=== PATIENT | female | born 1945 | race Two or more races ===

== ENCOUNTER 2017-01-29 14:06 | Emergency (ER) | payer MEDICARE ==
[~2017-01-29] VITALS: Ht 160 cm; Wt 81.6 kg
[2017-01-29 15:30] LABS: ALANINE AMINOTRANSFERASE 46 U/L (3-33); ALBUMIN/GLOBULIN RATIO 1.8 (1.0-2.7); ANION GAP 15 (5-15); ASPARTATE AMINO TRANSFERASE 34 U/L (5-40); CALCIUM 10.6 mg/dL (8.6-10.2); CARBON DIOXIDE 26 mEQ/L (20-30); CHLORIDE 96 mEQ/L (98-107); CREATININE 3.3 mg/dL (0.5-0.9); HEMOLYSIS 4; POTASSIUM 4.2 mEQ/L (3.4-4.9); SODIUM 137 mEQ/L (135-145); TOTAL PROTEIN 5.7 g/dL (6.6-8.7)
[2017-01-29 15:32] VITALS: BP 93/76
[2017-01-29 15:32] LABS: INR 1.1 (0.9-1.1)
[2017-01-29 15:35] LABS: BASOPHILS % (AUTO) 0.5 % (0.0-2.0); LYMPHOCYTES % (AUTO) 15.1 % (20.0-45.0); MEAN CORPUSCULAR HEMOGLOBIN 34.7 PG (27.0-31.0); MEAN CORPUSCULAR HGB CONC 32.3 G/DL (32.0-36.0); MEAN CORPUSCULAR VOLUME 107 FL (80-99); MEAN PLATELET VOLUME 7.4 FL (6.5-10.1); MONOCYTES % (AUTO) 7.3 % (1.0-10.0); PLATELET COUNT 134 K/UL (150-450); RED CELL DISTRIBUTION WIDTH 16.2 % (11.6-14.8); WHITE BLOOD COUNT 9.6 K/UL (4.8-10.8)
[2017-01-29 15:41] LABS: CKMB 2.2 ng/mL (< 3.8)
[2017-01-29 15:42] LABS: REFLEX LACTIC ACID YES OR NO YES
[2017-01-29 15:43] LABS: TROPONIN I 0.37 ng/mL (<=0.30)
[2017-01-29] MEDS ORDERED: Aspirin Baby 81mg ORAL ONE (15:45)
[2017-01-29] MEDS ORDERED: Hydrocortisone 100mg Inj IV ONE (15:45)
[2017-01-29] MEDS ORDERED: cefTRIAXone 1 GM in NS 55 ML IVPB ONE (15:45)
--- NOTE | 2017-01-29 15:49 | Diagnostic Imaging Report ---
Indication: SOB Technique: One view of the chest Comparison: none Findings: Lungs and pleural spaces are clear. Heart is mildly enlarged. Impression: Borderline cardiomegaly. No acute process
[2017-01-29 16:00] LABS: BILIRUBIN,DIRECT 0.4 mg/dL (0.1-0.3)
[2017-01-29] MEDS ORDERED: Levophed 4mg/4mL Inj IV ONE (16:01)
[2017-01-29 16:03] LABS: APPEARANCE,URINE TURBID; KETONES,URINE NEGATIVE (NEGATIVE); LEUKOCYTE ESTERASE ,URINE 3+ (NEGATIVE); NITRITE,URINE NEGATIVE (NEGATIVE); PH,URINE 6.5 (4.5-8.0); PROTEIN,URINE 4+ (NEGATIVE); UROBILINOGEN,URINE NORMAL MG/DL (0.0-1.0)
[2017-01-29 16:15] LABS: WBC,URINE TNTC /HPF (0 - 2)
[2017-01-29 16:16] LABS: BACTERIA,URINE MANY /HPF; SQUAMOUS EPITHELIAL CELL,UR OCCASIONAL /LPF (NONE/OCC)
[2017-01-29] MEDS ORDERED: Heparin 5000 units/ml inj IV ONE (17:00)
[2017-01-29] MEDS ORDERED: Heparin 25,000u/D5W 500ml 500 ML IV SCH (17:00)
[2017-01-29] MEDS ORDERED: Lidocaine 1% MPF 10mg/ml 5ml ONE (17:16)
--- NOTE | 2017-01-29 17:58 | Emergency Room Report ---
History of Present Illness General Chief Complaint: Generalized Weakness Source: Patient, EMS Present Illness HPI Patient is 72-year-old female brought in by EMS after increased generalized weakness. Patient can onset of symptoms. Patient had been seen in one day prior for MRI. The patient had recent fall approximately 2 weeks ago which she had a left lower extremity bruising from. Patient was brought in by EMS after increased generalized weakness. Patient is on multiple medications for her heart which include amiodarone as well as metoprolol and furosemide. She had been anticoagulated with Plavix as well as Elliquis. The patient noted be diabetic. The patient noted be hypotensive by EMS was given IV fluids. The patient is somewhat confused. History is limited by patient's mental status and poor historian Allergies: Coded Allergies: CIPROFLOXACIN (Verified Allergy, Unknown, 01/29/17) DIAZEPAM (Verified Allergy, Unknown, 01/29/17) HYPERACTIVITY Patient History Past Medical History: see triage record, DM Last Menstrual Period: N/A Reviewed Nursing Documentation: PMH: Agreed, PSxH: Agreed Nursing Documentation-PMH Hx Hypertension: Yes Hx Diabetes: Yes - BORDERLINE Review of Systems All Other Systems: limited - by mental status Physical Exam Vital Signs Date Time Temp Pulse Resp B/P Pulse Ox O2 Delivery O2 Flow Rate FiO2 01/29/17 14:09 100.0 90 16 70/23 99 Room Air General Appearance: alert, moderate distress, Chronically Ill Eyes: bilateral eye PERRL Neck: limited range of motion Cardiovascular #1: normal peripheral pulses, regular rate, rhythm Gastrointestinal: normal bowel sounds, non tender, soft Musculoskeletal: swelling - left leg bruising and swelling Neurologic: normal inspection, alert, oriented x3, responsive, snuff box finisher III-XII nml as tested Skin: normal inspection Procedures Critical Care Time Critical Care Time Patient had a critical medical condition which untreated could potentially result in life or limb threatening injury. Total critical care time excluding procedures approximately 45 minutes. Central Line Central Line : Consent: Emergent Central Line Lumen: triple Maximal Sterile Barrier Tech: yes cap, yes mask, yes sterile gown, yes sterile gloves, yes large sterile sheet, yes hand hygiene, yes chlorhexidine prep Central Line Postion: femoral (R) Anesthesia: local cc's of anesthesia: 4 Complications: none Central Line Post Position: sutured, good blood return Attempts: One Patient Tolerated: Well Complications: None Medical Decision Making Diagnostic Impression: Primary Impression: Severe sepsis Additional Impressions: Non-STEMI (non-ST elevated myocardial infarction) Renal insufficiency Pyelonephritis ER Course Patient presented for generalized weakness. Differential diagnosis included was not limited to anemia, urinary tract infection, electrolyte abnormality, hypothyroidism, myocardial infarction, myasthenia gravis, dehydration, among others. Because of complexity of patient's case laboratory testing and imaging studies were ordered. I EKG interpreted by me showed a sinus rhythm with the multiple premature atrial contractions rate of 93 there were inferior and anterior ST depressions concerning for ischemia. There appear to be some isolated changes in aVR less than 1 mm. The patient started on heparin drip. The patient was given aspirin. She was started on IV fluids and IV antibiotics. I laboratory testing was notable for elevated lactic acid level as well as thrombocytopenia. Patient's case was discussed with cardiology for [facility] transfer center and patient was accepted as a transfer for higher level care for cardiac management. The patient was a fully started on Levophed drip do to hypotension. 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 The patient is being transferred at [facility] for further cardiac evaluation and continuity care. The patient family requested transfer Labs Test 01/29/17 15:00 01/29/17 15:30 White Blood Count 9.6 K/UL (4.8-10.8) Red Blood Count 2.80 M/UL (4.20-5.40) Hemoglobin 9.7 G/DL (12.0-16.0) Hematocrit 30.1 % (37.0-47.0) Mean Corpuscular Volume 107 FL (80-99) Mean Corpuscular Hemoglobin 34.7 PG (27.0-31.0) Mean Corpuscular Hemoglobin Concent 32.3 G/DL (32.0-36.0) Red Cell Distribution Width 16.2 % (11.6-14.8) Platelet Count 134 K/UL (150-450) Mean Platelet Volume 7.4 FL (6.5-10.1) Neutrophils (%) (Auto) 77.0 % (45.0-75.0) Lymphocytes (%) (Auto) 15.1 % (20.0-45.0) Monocytes (%) (Auto) 7.3 % (1.0-10.0) Eosinophils (%) (Auto) 0.0 % (0.0-3.0) Basophils (%) (Auto) 0.5 % (0.0-2.0) Prothrombin Time 11.0 SEC (9.30-11.50) Prothromb Time International Ratio 1.1 (0.9-1.1) Activated Partial Thromboplast Time 26 SEC (23-33) Sodium Level 137 mEQ/L (135-145) Potassium Level 4.2 mEQ/L (3.4-4.9) Chloride Level 96 mEQ/L (98-107) Carbon Dioxide Level 26 mEQ/L (20-30) Anion Gap 15 (5-15) Blood Urea Nitrogen 40 mg/dL (7-23) Creatinine 3.3 mg/dL (0.5-0.9) Estimat Glomerular Filtration Rate mL/min (>60) Glucose Level 75 mg/dL (74-106) Lactic Acid Level 6.00 mmol/L (0.66-2.22) Calcium Level 10.6 mg/dL (8.6-10.2) Total Bilirubin 2.3 mg/dL (0.0-1.2) Direct Bilirubin 0.4 mg/dL (0.1-0.3) Aspartate Amino Transf (AST/SGOT) 34 U/L (5-40) Alanine Aminotransferase (ALT/SGPT) 46 U/L (3-33) Alkaline Phosphatase 88 U/L (35-104) Total Creatine Kinase 93 U/L (26-140) Creatine Kinase MB 2.2 ng/mL (< 3.8) Creatine Kinase MB Relative Index 2.3 Troponin I 0.37 ng/mL (<=0.30) Pro-B-Type Natriuretic Peptide 7527 pg/mL (0-125) Total Protein 5.7 g/dL (6.6-8.7) Albumin 3.7 g/dL (3.5-5.2) Globulin 2.0 g/dL Albumin/Globulin Ratio 1.8 (1.0-2.7) Urine Color Yellow Urine Appearance Turbid Urine pH 6.5 (4.5-8.0) Urine Specific [place] 1.010 (1.005-1.035) Urine Protein 4+ (NEGATIVE) Urine Glucose (UA) Negative (NEGATIVE) Urine Ketones Negative (NEGATIVE) Urine Occult Blood 5+ (NEGATIVE) Urine Nitrite Negative (NEGATIVE) Urine Bilirubin Negative (NEGATIVE) Urine Urobilinogen Normal MG/DL (0.0-1.0) Urine Leukocyte Esterase 3+ (NEGATIVE) Urine RBC 2-4 /HPF (0 - 2) Urine WBC Tntc /HPF (0 - 2) Urine Squamous Epithelial Cells Occasional /LPF Urine Bacteria Many /HPF (NONE) EKG Diagnostic Results Rate: normal Rhythm: other - diffuse st depression, st changes in avr ASA given to the pt in ED: Yes Rhythm Strip Diag. Results EP Interpretation: yes Rhythm: NSR, no PVC's, no ectopy Last Vital Signs Date Time Temp Pulse Resp B/P Pulse Ox O2 Delivery O2 Flow Rate FiO2 01/29/17 17:23 81/50 01/29/17 15:32 89 19 97 Room Air 01/29/17 14:09 100.0 Status: improved Disposition: XFER SHT-TRM HOSP Condition: Critical Referrals: NOT CHOSEN IPA/,REFERRING (PCP) García Day Jan 29, 2017 17:58
[2017-01-29 18:20] VITALS: BP 100/46
[2017-01-29 19:32] VITALS: BP 100/46
--- NOTE | 2017-01-31 00:52 | Cardiology Report ---
APPROVED REPORT EKG Measurement Heart [id number] Sinus rhythm with short OH Septal infarct, age undetermined Abnormal ECG
== END 2017-01-29 19:48 | disposition short-term general hospital (02) ==
LOC: EDBD 14:06 → EMR 15:50
DX: A41.9 Sepsis, unspecified organism (principal); I21.4 Non-ST elevation (NSTEMI) myocardial infarction; N12 Tubulo-interstitial nephritis, not specified as acute or chronic; N28.9 Disorder of kidney and ureter, unspecified; I10 Essential (primary) hypertension; Z88.8 Allergy status to other drugs, medicaments and biological substances; Z88.1 Allergy status to other antibiotic agents; E11.9 Type 2 diabetes mellitus without complications; Z79.02 Long term (current) use of antithrombotics/antiplatelets; Z79.01 Long term (current) use of anticoagulants
CPT/HCPCS: 36415; 51701; 71010; 80053; 81003; 82248; 82550; 82553; 83605; 83880; 84443; 84484; 85025; 85610; 85730; 87040; 87086; 87181; 93005; 96361; 96365; 96366; 96367; 96368; 99291; J0696; J1644; J1720; 96360; 96375